=== PATIENT | male | born 1985 | race Caucasian/White ===

== ENCOUNTER 2023-08-19 20:30 | Emergency (ER) | payer OTHER, SELFPAY ==
[2023-08-19 20:32] VITALS: BP 130/96; PULSE 81; TEMP 36.7; O2SAT 99
--- NOTE | 2023-08-19 20:39 | ED_ITS ---
HPI - Eye Problem General Chief complaint: Eye Problems Stated complaint: EYE DISCHARGE Time Seen by Provider: 08/19/23 20:34 Source: patient Mode of arrival: walk-in History of Present Illness HPI Narrative: 38-year-old male presents for bilateral eye drainage which started today. His eyes have been red and he has had no allergy symptoms or any foreign bodies. His thought he might have pinkeye and sent him here. Symptom has been continuous. Related Data Previous Rx's ?Medication ?Instructions ?Recorded sulfacetamide sodium 10 % eye drops 2 drp ophthalmic (eye) Q4H #15 mL 08/19/23 Allergies Allergy/AdvReac Type Severity Reaction Status Date / Time No Known Drug Allergies Allergy Verified 08/19/23 20:37 Review of Systems ROS Narrative A ten point review of systems is negative except as noted above. Exam Narrative Exam Narrative: Nurses note and vital signs reviewed and patient is not hypoxic. General: The patient appears well and in no apparent distress. Patient is resting comfortably on cart. Skin: Warm, dry, no pallor noted. There is no rash noted. Head: Normocephalic, atraumatic Eye: Bilateral conjunctival injection with small amount of drainage. No periorbital swelling or erythema. Ears, Nose, Mouth, and Throat: oral mucosa is moist. Nares patent. Cardiovascular: Regular Rate and Rhythm Respiratory: Patient is in no distress, no accessory muscle use, lungs are clear to auscultation, no wheezing, rales or rhonchi Back: non-tender GI: Soft and nontender Musculoskeletal: The patient has no evidence of calf tenderness, no pitting edema, symmetrical pulses noted bilaterally Neurological: A&O, normal speech Psychiatric: Cooperative Constitutional Vital Signs, click to edit/add: Last Vital Signs Temp 98.0 F 08/19/23 20:32 Pulse 81 08/19/23 20:32 Resp 16 08/19/23 20:32 BP 130/96 H 08/19/23 20:32 Pulse Ox 99 08/19/23 20:32 O2 Del Method Room Air 08/19/23 20:32 Course Vital Signs Vital signs: Vital Signs Temperature 98.0 F 08/19/23 20:32 Pulse Rate 81 08/19/23 20:32 Respiratory Rate 16 08/19/23 20:32 Blood Pressure 130/96 H 08/19/23 20:32 Pulse Oximetry 99 08/19/23 20:32 Oxygen Delivery Method Room Air 08/19/23 20:32 Temperature 98.0 F 08/19/23 20:32 Pulse Rate 81 08/19/23 20:32 Respiratory Rate 16 08/19/23 20:32 Blood Pressure 130/96 H 08/19/23 20:32 Pulse Oximetry 99 08/19/23 20:32 Oxygen Delivery Method Room Air 08/19/23 20:32 MDM - Eye Problem MDM Narrative Medical decision making narrative: My clinical impression is that he has conjunctivitis. Treatment diagnosis and follow-up were discussed with the patient. Differential Diagnosis Differential diagnosis: Likely corneal abrasion, conjunctivitis, periorbital cellulitis and subconjunctival hemorrhage Discharge Plan Discharge Stand Alone Forms: Portal Instructions Chief Complaint: Eye Problems Clinical Impression: Acute conjunctivitis, bilateral Patient Disposition: Home, Self-Care Time of Disposition Decision: 20:37 Condition: Good Mode of Transportation: Private Vehicle Prescriptions / Home Meds: New sulfacetamide sodium 10 % drops 2 drp ophthalmic (eye) Q4H Qty: 15 0RF Print Language: Turkish Instructions: Conjunctivitis (ED)
== END 2023-08-19 20:54 | disposition home or self-care (01) ==
PROVIDERS: Emergency Provider Emergency Medicine
DX: H10.33 Unspecified acute conjunctivitis, bilateral (principal)
CPT/HCPCS: 99283